=== PATIENT | male | born 1985 | race Caucasian/White ===

== ENCOUNTER 2021-07-07 16:37 | Emergency (ER) | payer BC ==
[2021-07-07] MEDS ORDERED: Acetaminophen 325 MG Tab PO ONE (17:25)
--- NOTE | 2021-07-07 18:38 | EDM.PDOC ---
ED HPI GENERAL MEDICAL PROBLEM - General Chief Complaint: Respiratory Problem Stated Complaint: REC'D COVID VACC 9 DAYS AGO/FEELING ILL Time Seen by Provider: 07/07/21 17:15 Source of Information: Reports: Patient, RN Notes Reviewed History Limitations: Reports: No Limitations - History of Present Illness INITIAL COMMENTS - FREE TEXT/NARRATIVE: Patient is a 36-year-old male presenting to the emergency department with complaints of fever, body aches, mild cough, and chest congestion. Reports symptoms began approximately 9 days ago. The day prior to symptom onset, he was vaccinated for Covid, flu, and Tdap. He denies any chest pain or shortness of breath. He has had no nausea, vomiting, diarrhea, or abdominal pain. Reports his fever is the most bothersome symptom. He has been taken Tylenol and ibuprofen for fever, however he has not taken anything since this morning. On arrival to ER, temperature was 102.8 temporal. Vital signs are otherwise normal. Oxygen is 100% on room air. Generalized Pain Score (Numeric/FACES): 5 - Related Data Allergies Allergy/AdvReac Type Severity Reaction Status Date / Time No Known Allergies Allergy Verified 07/07/21 17:03 Home Meds: Home Meds Omeprazole 20 mg PO DAILY 07/07/21 [History] Past Medical History - Past Health History Medical/Surgical History: Denies Medical/Surgical History Social & Family History - Tobacco Use Tobacco Use Status *Q: Current Every Day Tobacco User Years of Tobacco use: 10 Packs/Tins Daily: 1 - Caffeine Use Caffeine Use: Reports: Coffee - Recreational Drug Use Recreational Drug Use: No ED ROS GENERAL - Review of Systems Review Of Systems: Comprehensive ROS is negative, except as noted in HPI. ED EXAM, GENERAL - Physical Exam Exam: See Below Exam Limited By: No Limitations General Appearance: Alert, WD/WN, No Apparent Distress Respiratory/Chest: No Respiratory Distress, Lungs Clear, Normal Breath Sounds, No Accessory Muscle Use, Chest Non-Tender Cardiovascular: Normal Peripheral Pulses, Regular Rate, Rhythm, No Edema, No Gallop, No JVD, No Murmur, No Rub GI/Abdominal: Normal Bowel Sounds, Soft, Non-Tender, No Organomegaly, No Distention, No Abnormal Bruit, No Mass Neurological: Alert, Oriented, CN II-XII Intact, Normal Cognition, Normal Gait, Normal Reflexes, No Motor/Sensory Deficits Psychiatric: Normal Affect, Normal Mood Skin Exam: Warm, Dry, Intact, Normal Color, No Rash Course - Vital Signs Last Recorded V/S: Last Vital Signs Temp 100.8 F H 07/07/21 18:34 Pulse 98 07/07/21 17:02 Resp 18 07/07/21 17:02 BP 129/85 07/07/21 17:02 Pulse Ox 100 07/07/21 17:02 - Orders/Labs/Meds Labs: Laboratory Tests 07/07/21 Range/Units 16:50 SARS-CoV-2 RNA ([facility]) Positive H (NEGATIVE) Meds: Medications Discontinued Medications Generic Name Dose Route Start Last Admin Trade Name Mt PRN Reason Stop Dose Admin Acetaminophen 975 mg 07/07/21 17:25 07/07/21 17:38 Acetaminophen 325 Mg Tab PO 07/07/21 17:26 975 mg NOW ONE Administration - Re-Assessments/Exams Free Text/Narrative Re-Assessment/Exam: Patient is a 36-year-old male presenting to the emergency department with complaints of fever, chills, chest congestion, and mild cough. Exam is unremarkable. Lung sounds are clear. Temperature is 102.8 on arrival. I have ordered Tylenol 975 mg p.o., Covid and influenza testing, and chest x-ray. 07/07/21 18:37 Covid test is positive. Chest x-ray shows no acute abnormalities. Temperature has come down to 100.9 after the Tylenol. Patient will be discharged home. Discussed symptomatic treatment as well as return precautions and he verbalized understanding. Discharge instructions as documented. Departure - Departure Time of Disposition: 18:38 Disposition: Home, Self-Care 01 Condition: Good Clinical Impression: COVID-19 - Discharge Information *PRESCRIPTION DRUG MONITORING PROGRAM REVIEWED*: No *COPY OF PRESCRIPTION DRUG MONITORING REPORT IN PATIENT RYAN: No Instructions: COVID-19 Referrals: Rossi Valencia PA-C [Primary Care Provider] - Forms: ED Department Discharge Additional Instructions: You were seen in the emergency department today for 9-day history of fever, chills, cough, and chest congestion. Work-up included influenza and Covid testing as well as chest x-ray. Covid was found to be positive. Chest x-ray is clear. Recommend symptomatic treatment. Use Tylenol and ibuprofen for fever and body aches. Ensure taking adequate amount of fluid. If you choose, you can purchase a home pulse oximeter to monitor your oxygen saturations. If you are maintaining 89% or below, you should return to the emergency department for reevaluation.
--- NOTE | 2021-07-08 09:10 | CR ---
Chest: Frontal view of the chest was obtained. Comparison: No prior chest imaging is available. Minimal increased density is seen within both mid lungs as well as the right lung base. Findings are most likely due to very minimal COVID pneumonia. Lungs otherwise are clear. Heart size and mediastinum are normal. Bony structures show nothing acute. Impression: 1. Findings suspicious for minimal COVID pneumonia. Diagnostic code #3
== END 2021-07-07 19:12 | disposition home or self-care (01) ==
LOC: JD.ED 16:37
DX: U07.1 COVID-19 (principal); Z72.0 Tobacco use
CPT/HCPCS: 71045; 87635; 87804; 99283; A9270; U0002